=== PATIENT | female | born 1985 | race Two or more races ===

== ENCOUNTER → 2017-05-30 | Outpatient (CLI) | payer OTHER ==
--- NOTE | 2017-05-31 10:16 | REP ---
Right wrist series: Four views. History: Ulnar sided wrist pain. Findings: Four views of the right wrist demonstrate normal bones and joints. No fracture or erosive change seen. Impression: Negative right wrist radiographs. Signed by Federico Giang MD 05/31/2017 03:19 P
== END ==
LOC: M LRY 12:18
PROVIDERS: ATTEND Nurse Practitioner Family
DX: S69.91XA Unspecified injury of right wrist, hand and finger(s), initial encounter (principal); X58.XXXA Exposure to other specified factors, initial encounter; Y92.89 Other specified places as the place of occurrence of the external cause; Y93.89 Activity, other specified; Y99.8 Other external cause status
CPT/HCPCS: 73110; G0463

== ENCOUNTER → 2018-04-05 | Outpatient (CLI) | payer OTHER ==
[~2018-04-05] MED LIST: ISOVUE-370 76% 100ML VIAL (Q9967) As Ordered
== END ==
LOC: M RAD 14:04
DX: K76.89 Other specified diseases of liver (principal)
CPT/HCPCS: Q9967

== ENCOUNTER → 2018-11-20 | Outpatient (REF) | payer OTHER | LOC: M SFHCLERA 11:29 | PROVIDERS: ATTEND Nurse Practitioner Family | DX: Z87.898 Personal history of other specified conditions (principal) ==

== ENCOUNTER → 2019-05-03 | Outpatient (REF) | payer OTHER | LOC: M SFHCLERA 13:10 | PROVIDERS: ATTEND Nurse Practitioner Family | DX: J02.9 Acute pharyngitis, unspecified (principal) ==

== ENCOUNTER 2019-07-06 15:49 | Emergency (ER) | payer OTHER ==
[~2019-07-06] VITALS: Ht 170.2 cm; Wt 111.4 kg
[2019-07-06] MEDS ORDERED: NORCO, ANEXSIA 5/325MG TABLET (HYDROcodone/ACETAMINOPHEN) PO ONE (16:45)
[2019-07-06 17:50] VITALS: BP 130/86
--- NOTE | 2019-07-07 08:42 | REP ---
NASAL BONE SERIES: 07/06/2019. Clinical history: Trauma, swelling, leftward deviation of the nose. Findings: Anteriorly the nasal septum is deviated towards the left. I do not see a linear or depressed nasal bone fracture. Nasal spine of the maxilla is not intact. There is an air-fluid level in the right maxillary antrum. The left maxillary antrum was normal. Orbital floors are grossly intact. Medial orbital morton and the orbital struts intact. Impression: 1. There is an air-fluid level in the right maxillary sinus which may be related to acute sinusitis or trauma. 2. No visible orbital floor fracture. 3. I do not see a linear or depressed nasal bone fracture but the nasal septum is deviated towards the left anteriorly. Electronically Signed by Hayden Saldana MD 07/07/2019 10:42 A
== END 2019-07-06 17:50 | disposition home or self-care (01) ==
LOC: M ED 15:49
DX: S02.2XXA Fracture of nasal bones, initial encounter for closed fracture (principal); X58.XXXA Exposure to other specified factors, initial encounter; Y92.009 Unspecified place in unspecified non-institutional (private) residence as the place of occurrence of the external cause

== ENCOUNTER → 2023-04-20 | Outpatient (CLI) | payer OTHER | LOC: M WHC 12:31 | PROVIDERS: ATTEND Family Medicine | DX: Z12.31 Encounter for screening mammogram for malignant neoplasm of breast (principal) ==

== ENCOUNTER → 2023-09-04 | Outpatient (REF) | payer OTHER | LOC: M LAB REF 09:19 | PROVIDERS: ATTEND Student in an Organized Health Care Education/Training Program | DX: R10.32 Left lower quadrant pain (principal) ==